=== PATIENT | male | born 1995 | race Caucasian/White ===

== ENCOUNTER → 2018-11-10 | Outpatient (CLI) | payer OTHER ==
--- NOTE | 2018-11-10 18:32 | REP ---
Scrotal ultrasound for right testicular pain there has been present for 1 year: There are no comparisons. The right testis measures 5.2 by 2443 0.3 cm. Left testis measures 5.0 x 2.7 x 3.0 cm. The testes are normal size. There are no testicular masses or cysts. The right epididymal head measures 9.5 mm and the left epididymal head measures 9.0 mm. The epididymal heads are normal size. There is a 4 mm left epididymal head cyst. There is no cyst in the right epididymal head. With Doppler assessment the resistive index of the parenchymal arteries of the right testis is 0.5, 90, left testis 0.68. There is vascular flow in both testes. With color Doppler assessment and Valsalva there are small bilateral varicoceles. Impression: No testicular masses. There is vascular flow in both testes. There are small bilateral varicoceles. The There is a 4 mm left epididymal head cyst. Electronically Signed by Javi Serrano MD 11/10/2018 06:24 P
== END ==
LOC: M RAD 16:13
PROVIDERS: ATTEND Nurse Practitioner Family
DX: N50.3 Cyst of epididymis (principal)

== ENCOUNTER → 2018-12-24 | Outpatient (CLI) | payer OTHER ==
[~2018-12-24] MED LIST: CONRAY-43 43% 50ML VIAL (Q9960) As Ordered ONE; PROHANCE 279.3MG/ML 5ML VIAL (A9576) As Ordered ONE
--- NOTE | 2018-12-24 15:27 | REP ---
MR ARTHROGRAM RIGHT SHOULDER: TECHNIQUE: Axial T2 fat sat, coronal oblique T1, T2 fat sat, post arthrogram axial T1 fat sat, proton density, coronal oblique T1 fat sat, T2 sat, sagittal oblique T2 fat sat, ABER T1 fat sat. There is mild ill-defined high signal in the supraspinatus tendon compatible with mild tendinopathy/tendinitis. There is no rotator cuff tendon tear. I do not see significant hypertrophy degenerative change at the acromioclavicular joint. The acromion is type 2. Biceps tendon is within the bicipital groove with a tiny amount of surrounding fluid. There is no Hill-Sachs deformity. The deltoid muscle demonstrates normal signal. Biceps labral complex is intact. I do not see evidence of a labral tear. There is no bone marrow edema or occult fracture. There is a normal amount of joint fluid. No paralabral cyst is seen. IMPRESSION: Mild supraspinatus tendinopathy. No rotator cuff tear or labral tear. No other significant finding. Electronically Signed by Javi Medina MD 12/24/2018 04:58 P
--- NOTE | 2018-12-24 16:56 | REP ---
Procedure: Right shoulder arthrogram The procedure was performed under the direct supervision of Dr. Medina. History: Right shoulder pain The benefits and risks including but not limited to pain, infection, bleeding and anaphylaxis were explained to the patient and informed consent was obtained. Technique: The right glenohumeral joint space was localized using fluoroscopic guidance. The skin was prepped and draped in a sterile fashion. 1% lidocaine was used as a local anesthetic. Using fluoroscopic guidance a 22 gauge spinal needle was inserted and advanced into the joint. 0.5 ml of Conray 43 was injected to verify placement. 11 ml of a solution containing 20 ml of sterile saline and 0.15 ml of ProHance was injected into the joint. The needle was removed and the patient was taken to MRI for postprocedural imaging. The the patient tolerated the procedure well and there were no immediate complications. Less than 6 seconds of fluoro time was utilized for this procedure. Reviewed by BALBINA Leung 12/24/2018 03:37 P Electronically Signed by Javi Medina MD 12/24/2018 04:47 P
== END ==
LOC: M RADPRO 06:44
PROVIDERS: ATTEND Emergency Medicine
DX: M75.91 Shoulder lesion, unspecified, right shoulder (principal); M25.511 Pain in right shoulder
CPT/HCPCS: 23350; 73223; 77002; A9576; Q9960